=== PATIENT | female | born 1985 | race Caucasian/White ===

== ENCOUNTER 2025-07-26 21:54 | Emergency (ER) | payer MEDICAID, SELFPAY ==
[2025-07-26 21:56] VITALS: BMI 21.2
[2025-07-26 22:45] VITALS: BP 131/86; PULSE 88; RESP 18; TEMP 36.7; O2SAT 98
--- NOTE | 2025-07-26 23:17 | EDNOTE_ITS ---
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 Patient denies [place]. Limitations: no limitations Related Data Allergies Allergy/AdvReac Type Severity Reaction Status Date / Time Sulfa (Sulfonamide Allergy Unknown Verified 07/26/25 21:55 Antibiotics) Review of Systems Review of Systems Systems Reviewed: All systems reviewed, normal except as documented ENT Ears, Nose, Mouth, and Throat: Reports neck pain Musculoskeletal Musculoskeletal: Reports as per HPI and Reports neck pain Past Medical History Social History SMOKING STATUS: Current every day smoker ED Exam General Limitations: Present no limitations General appearance: Present alert and in distress Head Head exam: Present atraumatic Neck Neck exam: Present normal inspection, full ROM and trachea midline Chest Chest inspection: Present normal inspection and symmetric chest wall rise Neurological Exam Neurological exam: Present alert and oriented X3 Psychiatric Psychiatric exam: Present normal affect and normal mood Skin Skin exam: Present warm, dry, intact and normal color Course Quality Measures none Orders Category Date Time Status Diazepam [Valium] Med 07/26/25 23:17 Discontinued 5 mg PO X1 ONE Ketorolac Inj [Toradol Inj] Med 07/26/25 23:14 Discontinued 60 mg IM X1 ONE Vital Signs Vital signs: Vital Signs Temperature 98.1 F 07/26/25 22:45 Pulse Rate 88 07/26/25 22:45 Respiratory Rate 18 07/26/25 22:45 Blood Pressure 131/86 H 07/26/25 22:45 Pulse Oximetry (%) 98 07/26/25 22:45 Oxygen Delivery Method Room Air 07/26/25 22:45 O2 at 98% on RA and WNLs Neck Pain MDM Narrative MDM Narrative:: 39F with history of drug use (on methadone) and scoliosis presents to ED with several hours of neck pain w/o fall/trauma. Patient denies [place]. Physical exam reveals no obvious neck tenderness or swelling. ROM intact. Normal pupil response and EOM. Patient is afebrile, alert, but appears to be pain. Patient eloped after meds. Patient data External records reviewed:: None Clinical information provided by:: patient Social determinants that could affect healthcare access:: mental health Patient has the following chronic illnesses:: drug use and scoliosis How is presenting disease/condition affected by chronic disease/condition?: exacerbated by Evaluation data The following diagnostics were reviewed and interpreted by me:: other (specify) (none) Lab and/or radiology exams considered but not ordered:: not ordered Interpretation Summary: n/a Medications / Prescriptions Medications or Prescriptions considered but not ordered:: ordered Medication administrations:: Medication Administration History Discontinued Medications Diazepam (Diazepam 5 Mg Tablet) 5 mg PO X1 ONE Stop: 07/26/25 23:18 Last Admin: 07/26/25 23:49 Dose: 5 mg Documented By: JAYCEE Ketorolac Tromethamine (Ketorolac Inj 60 Mg/2 Ml Vial) 60 mg IM X1 ONE Stop: 07/26/25 23:15 Last Admin: 07/26/25 23:48 Dose: 60 mg Documented By: JAYCEE above Consultations Consultation(s) initiated? (list below): No Diagnosis Neck Differential Diagnosis: disc disorder of cervical region, whiplash injury to neck, closed subluxation of cervical spine, fracture of cervical spine without lesion of spinal cord, cervical radiculopathy, vertebral artery dissection, torticollis, cervical spondylosis and strain of neck muscle Most likely diagnosis given after review of the tests above:: neck pain Admission Indicated Admission indicated?: not indicated Admission Request Was there a request for admission?: No Disposition Plan Disposition Plan: other (specify) (eloped) Discharge Plan Plan Patient Disposition: Elopement Problem List Clinical Impression: Neck pain Patient/Caregiver Discharge Instructions Print Language: Slovenian MILAD Supervising Physician MILAD Supervising Physician: Dr. Jack
[2025-07-26] MEDS: KETOROLAC INJ 60 MG/2 ML VIAL IM (23:48)
[2025-07-26] MEDS: DIAZEPAM 5 MG TABLET PO (23:49)
== END 2025-07-27 01:20 | disposition left against medical advice (07) ==
LOC: SERX 07-27 01:40
PROVIDERS: Emergency Provider Emergency Medicine; PCP Nurse Practitioner Family
DX: M54.2 Cervicalgia (principal); M41.9 Scoliosis, unspecified; Z53.21 Procedure and treatment not carried out due to patient leaving prior to being seen by health care provider
CPT/HCPCS: 96372; 99282; J1885; A9270